=== PATIENT | female | born 1995 | race Caucasian/White ===

== ENCOUNTER 2021-03-17 23:36 | Emergency (ER) | payer BC ==
[2021-03-17] MEDS ORDERED: Sodium Chloride 0.9% 10 ML Syringe FLUSH PRN (23:49)
[2021-03-17] MEDS ORDERED: Sodium Chloride 0.9% 2.5 ML Syringe FLUSH PRN (23:49)
[2021-03-18 00:36] LABS: BLOOD UREA NITROGEN,BUN 10 mg/dL (7.0-18.0); CARBON DIOXIDE,CO2 23.7 mmol/L (21.0-32.0); CHLORIDE,CL 103 mmol/L (98-107); GLUCOSE RANDOM 94 mg/dL (74-106); SODIUM,NA 138 mmol/L (136-145)
--- NOTE | 2021-03-18 01:34 | EDM.PDOC ---
ED HPI GENERAL MEDICAL PROBLEM - General Chief Complaint: BLOCK PILER Problem Stated Complaint: 6 LUCIANO , SPOTTING Time Seen by Provider: 03/17/21 23:49 - History of Present Illness INITIAL COMMENTS - FREE TEXT/NARRATIVE: HISTORY AND PHYSICAL: History of present illness: This is a 25-year-old female who is 1 para 0 approximately 6-1/2 weeks by date who presents ER today secondary to vaginal bleeding. Patient has any recent fevers, shakes, chills, vomiting, diarrhea. Patient reports that she has been nauseous. Patient reports approximate 1 month ago she had a breast reduction done. Patient's last menstrual period was approximately 6 weeks ago. Patient denies any chest pain or shortness of breath. Patient does complain of lower pelvic pain. Patient reports that she is having spotting less than 1 pad but had a couple clots come out. Patient has any dizziness or weakness. Review of systems: As per history of present illness and below otherwise all systems reviewed and negative. Past medical history: As per history of present illness and as reviewed below otherwise noncontributory. Surgical history: As per history of present illness and as reviewed below otherwise noncontributory. Social history: No reported history of drug abuse. Family history: As per history of present illness and as reviewed below otherwise noncontributory. Physical exam: This patient was seen and evaluated during the 2019 SARS-CoV-2 novel coronavirus pandemic period. Community viral transmission is ongoing at time of this encounter and the emergency department is operating under pandemic response procedures. Constitutional: Patient is oriented to person, place, and time. Appears well- developed and well-nourished. No distress. HEENT: Moist mucous membranes Head: Normocephalic and atraumatic Eyes: Right eye exhibits no discharge. Left eye exhibits no discharge. No scleral icterus Neck: Normal range of motion. No tracheal deviation present. Cardiovascular: Normal rate and regular rhythm. Pulmonary: Effort normal, no respiratory distress. Abd: Soft, nondistended, no rebound/guarding, no psoas or obturator signs, no tenderness at Mcberney's point, no Roberts's sign. Pt does not present with an exam that would be consistent with an acute surgical abdomen at this time, tenderness palpation suprapubic region Musculoskeletal: Normal range of motion Neurologic: Alert and oriented to person, place and time. Skin: [place], warm and dry. Psychiatric: Normal mood and affect. Behavior is normal. Judgment and thought content normal. Nursing note and vital signs have been reviewed Diagnostics: Ultrasound reveals a 6-1/2-week IUP with heart activity noted at approximately 110 bpm Therapeutics: CBC, CMP within normal limits. Rh+ UA unremarkable Beta-hCG greater than 24,000 Assessment and plan: 25-year-old female who presents ER today secondary to threatened miscarriage. Patient has been having bleeding for 1 to 2 days. Patient's ultrasound reveals a 6-1/2 week IUP with heart activity. I have discussed return precautions with the patient. Reassessment at the time of disposition demonstrates that the patient is in no acute distress. The patient has remained stable throughout the entire ED visit and is without objective evidence for acute process requiring urgent intervention or hospitalization. The patient is stable for discharge, counseling is provided as documented above, discussed symptomatic treatment and specific conditions for return. I have spoken with the patient/caregiver and discussed todays findings, in addition to providing specific details for the plan of care. Questions are answered and there is agreement with the plan. Definitive disposition and diagnosis as appropriate pending reevaluation and review of above. Abdomen Pain Score (Numeric/FACES): 3 - Related Data Allergies Allergy/AdvReac Type Severity Reaction Status Date / Time No Known Allergies Allergy Verified 03/17/21 23:49 Home Meds: Home Meds Escitalopram Oxalate [Lexapro] 10 mg PO DAILY 03/17/21 [History] No122/Iron/Folic Acid [ Multi Tablet] 1 each PO DAILY 03/17/21 [History] Past Medical History HEENT History: Reports: None Cardiovascular History: Reports: None Respiratory History: Reports: None Gastrointestinal History: Reports: None Genitourinary History: Reports: Renal Calculus, UTI, Recurrent BLOCK PILER History: Reports: , Other (See Below) Other BLOCK PILER History: ovarian cyst that ruptured Musculoskeletal History: Reports: None Neurological History: Reports: None Psychiatric History: Reports: Anxiety Endocrine/Metabolic History: Reports: None Insulin Pump Model and Bending Machine Set Up Operator: None Hematologic History: Reports: None Immunologic History: Reports: None Oncologic (Cancer) History: Reports: None Dermatologic History: Reports: None - Infectious Disease History Infectious Disease History: Reports: None - Past Surgical History Head Surgeries/Procedures: Reports: None Female Surgical History: Reports: Breast Reduction Social & Family History - Caffeine Use Caffeine Use: Reports: Soda - Recreational Drug Use Recreational Drug Use: No ED ROS GENERAL - Review of Systems Review Of Systems: See Below ED EXAM, GENERAL - Physical Exam Exam: See Below Course - Vital Signs Last Recorded V/S: Last Vital Signs Temp 97.5 F 03/17/21 23:45 Pulse 77 03/18/21 00:33 Resp 18 03/18/21 00:33 BP 114/62 03/18/21 00:33 Pulse Ox 98 03/18/21 00:33 - Orders/Labs/Meds Orders: Active Orders 24 hr Category Date Time Status OB 1st Tri Sgl 1st Gest [US] Stat Exams 03/17/21 23:50 Taken Sodium Chloride 0.9% [Saline Flush] Med 03/17/21 23:49 Active 10 ml FLUSH ASDIRECTED PRN Sodium Chloride 0.9% [Saline Flush] Med 03/17/21 23:49 Active 2.5 ml FLUSH ASDIRECTED PRN Saline Lock Insert [OM.PC] Stat Oth 03/17/21 23:49 Ordered Medication Orders Sodium Chloride (Sodium Chloride 0.9% 10 Ml Syringe) 10 ml FLUSH ASDIRECTED PRN PRN Reason: Keep Vein Open Sodium Chloride (Sodium Chloride 0.9% 2.5 Ml Syringe) 2.5 ml FLUSH ASDIRECTED PRN PRN Reason: Keep Vein Open Labs: Laboratory Tests 03/18/21 03/18/21 03/18/21 Range/Units 00:00 00:05 00:05 WBC 11.08 H (4.0-11.0) K/uL RBC 3.76 L (4.30-5.90) M/uL Hgb 11.4 L (12.0-16.0) g/dL Hct 34.8 L (36.0-46.0) % MCV 92.6 (80.0-98.0) fL MCH 30.3 (27.0-32.0) pg MCHC 32.8 (31.0-37.0) g/dL RDW Std Deviation 48.5 (28.0-62.0) fl RDW Coeff of Sukhjinder 14 (11.0-15.0) % Plt Count 362 (150-400) K/uL MPV 9.30 (7.40-12.00) fL Neut % (Auto) 63.2 (48.0-80.0) % Lymph % (Auto) 26.6 (16.0-40.0) % Dane % (Auto) 8.7 (0.0-15.0) % Eos % (Auto) 1.1 (0.0-7.0) % Baso % (Auto) 0.4 (0.0-1.5) % Neut # (Auto) 7.0 H (1.4-5.7) K/uL Lymph # (Auto) 3.0 H (0.6-2.4) K/uL Dane # (Auto) 1.0 H (0.0-0.8) K/uL Eos # (Auto) 0.1 (0.0-0.7) K/uL Baso # (Auto) 0.0 (0.0-0.1) K/uL Nucleated RBC % 0.0 /100WBC Nucleated RBCs # 0 K/uL Sodium 138 (136-145) mmol/L Potassium 4.0 (3.5-5.1) mmol/L Chloride 103 (98-107) mmol/L Carbon Dioxide 23.7 (21.0-32.0) mmol/L BUN 10 (7.0-18.0) mg/dL Creatinine 0.6 (0.6-1.0) mg/dL Est Cr Clr Drug Dosing 135.35 mL/min Estimated GFR (MDRD) > 60.0 ml/min Glucose 94 (74-106) mg/dL Calcium 8.3 L (8.5-10.1) mg/dL Total Bilirubin 0.2 (0.2-1.0) mg/dL AST 12 L (15-37) IU/L ALT 20 (14-63) IU/L Alkaline Phosphatase 57 (46-116) U/L Total Protein 6.8 (6.4-8.2) g/dL Albumin 3.1 L (3.4-5.0) g/dL Globulin 3.7 (2.6-4.0) g/dL Albumin/Globulin Ratio 0.8 L (0.9-1.6) HCG, Quant mIU/mL Urine Color YELLOW Urine Appearance CLEAR Urine pH 7.0 (5.0-8.0) Ur Specific [place] 1.010 (1.001-1.035) Urine Protein NEGATIVE (NEGATIVE) mg/dL Urine Glucose (UA) NEGATIVE (NEGATIVE) mg/dL Urine Ketones NEGATIVE (NEGATIVE) mg/dL Urine Occult Blood TRACE-INTACT H (NEGATIVE) Urine Nitrite NEGATIVE (NEGATIVE) Urine Bilirubin NEGATIVE (NEGATIVE) Urine Urobilinogen 0.2 (<2.0) EU/dL Ur Leukocyte Esterase TRACE H (NEGATIVE) Urine RBC 0-2 (0-2/HPF) Urine WBC 0-2 (0-5/HPF) Ur Epithelial Cells OCCASIONAL (NONE-FEW) Urine Bacteria FEW (NEGATIVE) Blood Type 03/18/21 03/18/21 Range/Units 00:05 00:05 WBC (4.0-11.0) K/uL RBC (4.30-5.90) M/uL Hgb (12.0-16.0) g/dL Hct (36.0-46.0) % MCV (80.0-98.0) fL MCH (27.0-32.0) pg MCHC (31.0-37.0) g/dL RDW Std Deviation (28.0-62.0) fl RDW Coeff of Sukhjinder (11.0-15.0) % Plt Count (150-400) K/uL MPV (7.40-12.00) fL Neut % (Auto) (48.0-80.0) % Lymph % (Auto) (16.0-40.0) % Dane % (Auto) (0.0-15.0) % Eos % (Auto) (0.0-7.0) % Baso % (Auto) (0.0-1.5) % Neut # (Auto) (1.4-5.7) K/uL Lymph # (Auto) (0.6-2.4) K/uL Dane # (Auto) (0.0-0.8) K/uL Eos # (Auto) (0.0-0.7) K/uL Baso # (Auto) (0.0-0.1) K/uL Nucleated RBC % /100WBC Nucleated RBCs # K/uL Sodium (136-145) mmol/L Potassium (3.5-5.1) mmol/L Chloride (98-107) mmol/L Carbon Dioxide (21.0-32.0) mmol/L BUN (7.0-18.0) mg/dL Creatinine (0.6-1.0) mg/dL Est Cr Clr Drug Dosing mL/min Estimated GFR (MDRD) ml/min Glucose (74-106) mg/dL Calcium (8.5-10.1) mg/dL Total Bilirubin (0.2-1.0) mg/dL AST (15-37) IU/L ALT (14-63) IU/L Alkaline Phosphatase (46-116) U/L Total Protein (6.4-8.2) g/dL Albumin (3.4-5.0) g/dL Globulin (2.6-4.0) g/dL Albumin/Globulin Ratio (0.9-1.6) HCG, Quant 73825.0 mIU/mL Urine Color Urine Appearance Urine pH (5.0-8.0) Ur Specific [place] (1.001-1.035) Urine Protein (NEGATIVE) mg/dL Urine Glucose (UA) (NEGATIVE) mg/dL Urine Ketones (NEGATIVE) mg/dL Urine Occult Blood (NEGATIVE) Urine Nitrite (NEGATIVE) Urine Bilirubin (NEGATIVE) Urine Urobilinogen (<2.0) EU/dL Ur Leukocyte Esterase (NEGATIVE) Urine RBC (0-2/HPF) Urine WBC (0-5/HPF) Ur Epithelial Cells (NONE-FEW) Urine Bacteria (NEGATIVE) Blood Type A POSITIVE Meds: Medications Generic Name Dose Route Start Last Admin Trade Name Freq PRN Reason Stop Dose Admin Sodium Chloride 10 ml 03/17/21 23:49 Sodium Chloride 0.9% 10 Ml Syringe FLUSH ASDIRECTED PRN Keep Vein Open Sodium Chloride 2.5 ml 03/17/21 23:49 Sodium Chloride 0.9% 2.5 Ml Syringe FLUSH ASDIRECTED PRN Keep Vein Open Departure - Departure Time of Disposition: 01:33 Disposition: Home, Self-Care 01 Condition: Good Clinical Impression: Threatened miscarriage in early - Discharge Information Instructions: Threatened Miscarriage, [id number] Referrals: Jessica Coelho NP [Primary Care Provider] - Additional Instructions: You were seen and evaluated in the ER today secondary to vaginal bleeding during . Your ultrasound reveals a 6-1/2-week with good heart activity. Your blood type test is A positive. Please make an appointment to follow-up with your OB doctor in the next several days. Please return to the ER for any new or concerning symptoms. We will recommend returning to the ER if you are bleeding more than 2-3 pads per hour for 2 to 3 hours in a row. The following information is given to patients seen in the emergency department who are being discharged to home. This information is to outline your options for follow-up care. We provide all patients seen in our emergency department with a follow-up referral. The need for follow-up, as well as the timing and circumstances, are variable depending upon the specifics of your emergency department visit. If you don't have a primary care physician on staff, we will provide you with a referral. We always advise you to contact your personal physician following an emergency department visit to inform them of the circumstance of the visit and for follow-up with them and/or the need for any referrals to a consulting specialist. The emergency department will also refer you to a specialist when appropriate. This referral assures that you have the opportunity for follow-up care with a specialist. All of these measure are taken in an effort to provide you with optimal care, which includes your follow-up. Under all circumstances we always encourage you to contact your private physician who remains a resource for coordinating your care. When calling for follow-up care, please make the office aware that this follow-up is from your recent emergency room visit. If for any reason you are refused follow-up, please contact the [facility] Emergency Department at and asked to speak to the emergency department charge nurse. [facility] - Primary Care [address] [place] [id number] [facility] [address] [place] [id number] Sepsis Event Note (ED) - Evaluation Sepsis Screening Result: No Definite Risk - Focused Exam Vital Signs: Vital Signs Temp Pulse Resp BP Pulse Ox 03/18/21 00:33 77 18 114/62 98 03/17/21 23:45 97.5 F 86 18 124/64 97 - My Orders Last 24 Hours: My Active Orders 03/17/21 23:49 Sodium Chloride 0.9% [Saline Flush] 10 ml FLUSH ASDIRECTED PRN Sodium Chloride 0.9% [Saline Flush] 2.5 ml FLUSH ASDIRECTED PRN Saline Lock Insert [OM.PC] Stat 03/17/21 23:50 OB 1st Tri Sgl 1st Gest [US] Stat - Assessment/Plan Last 24 Hours: My Active Orders 03/17/21 23:49 Sodium Chloride 0.9% [Saline Flush] 10 ml FLUSH ASDIRECTED PRN Sodium Chloride 0.9% [Saline Flush] 2.5 ml FLUSH ASDIRECTED PRN Saline Lock Insert [OM.PC] Stat 03/17/21 23:50 OB 1st Tri Sgl 1st Gest [US] Stat
--- NOTE | 2021-03-18 02:23 | US ---
For Patients: As a result of the Century Cures Act, medical imaging exams and procedure reports are released immediately into your electronic medical record. You may view this report before your referring provider. If you have questions, please contact your health care provider. INDICATION: Spotting and cramping TECHNIQUE: Ultrasound OB pelvis transvaginal. Real-time sotelo-scale imaging of the pelvis was performed. COMPARISON: None FINDINGS: Clinical Age: 6 weeks 4 days ([facility]AL 11/07/2021) Sonographic imaging demonstrates a single living intrauterine gestation. The embryo demonstrates a regular cardiac rate measuring 113 beats per minute. The embryo`s crown rump length measurement of 0.4 cm corresponds to a gestational age of 6 weeks 1 day which is within standard deviation of the clinical age. There is a normal appearing yolk sac. There are no gross abnormalities noted within the embryo at this early state of development. The placenta has not yet developed. Hyperechoic area near the internal os measuring 3.0 x 1.7 centimeters. Maternal right ovary measures 2.8 x 2.3 x 2.7 centimeters with a likely 1.9 centimeter corpus luteum. Normal blood flow within the maternal left ovary with an anechoic 4.1 centimeter cyst. There are no suspicious fluid collections noted in the cul-de-sac. IMPRESSION: 1. Single live intrauterine gestation with a clinical age of 6 weeks 4 days. 2. Hyperechoic material near the internal os measuring to 3.0 centimeters, likely a perigestational bleed. Considering the size of the bleed, follow-up ultrasound suggested in 1 week to reassess viability. Dictated by Saman Swartz MD @ 03/18/2021 2:21:[address] Saman Swartz @ Mar 18 2021 2:21AM
== END 2021-03-18 01:53 | disposition home or self-care (01) ==
LOC: MW.ED 23:36
DX: O20.0 Threatened abortion (principal); Z3A.01 Less than 8 weeks gestation of pregnancy
CPT/HCPCS: 36415; 76801; 76801-26; 80053; 81001; 84702; 85025; 86900; 86901; 99283; 99284-25